=== PATIENT | female | born 1980 | race African-American/Black ===

== ENCOUNTER 2022-11-30 16:39 | Observation (INO) | payer SELFPAY ==
[~2022-11-30 16:39] MED LIST: Iopamidol-370 76% 500 ML MDV (1 ML CHARGE) ONE
[2022-11-30 19:12] LABS: #Eosinphils 0.3 thou/uL (0.0-0.7); #Monocytes 0.4 thou/uL (0.11-0.59); #Neutrophils 2.6 thou/uL (1.40-6.50); %Basophils 0.5 % (0.0-1.0); %Eosinophils 5.8 % (0.0-10.0); %Lymphocytes 39.7 % (21.0-51.0); %Monocytes 7.6 % (0.0-10.0); %Neutrophils 46.2 % (42.0-75.0); Hemoglobin 11.5 g/dL (12.0-16.0); Mean Corpuscular HGB CONC 33.1 g/dL (32.0-36.0); Mean Corpuscular Hemoglobin 29.5 pg (27.0-31.0); Mean Platelet Volume 9.9 fL (7.4-10.4); Platelet Count 309 10x3/uL (130-400); RBC Distribution Width 15.3 % (11.5-14.5); White Blood Cell (WBC) Count 5.5 10x3/uL (4.8-10.8)
[2022-11-30 19:27] LABS: BHCG - Serum Negative (NEGATIVE); Pregs Control Background? CLEAR/WHITE (CLR/WHITE); Pregs Control Bar Appear? YES (CONTROL BAR)
[2022-11-30 19:36] LABS: ALT (SGPT) 7 U/L (8-55); AST (SGOT) 13 U/L (5-34); Albumin 4.6 g/dL (3.5-5.0); Alkaline Phosphatase 58 U/L (40-110); Anion Gap 13 mmol/L (10-20); BUN (Urea Nitrogen) 10 mg/dL (7.0-18.7); Bilirubin, Total 0.2 mg/dL (0.2-1.2); Calc. Creatinine Clearance 0 mL/min (70-130); Calcium 9.9 mg/dL (7.8-10.44); Carbon Dioxide 26 mmol/L (22-29); Chloride 106 mmol/L (98-107); Estimated GFR 80; Globulin 3.3 g/dL (2.4-3.5); Glucose 88 mg/dL (70-105); Potassium 4.5 mmol/L (3.5-5.1); Protein, Total 7.9 g/dL (6.0-8.3); Sodium 140 mmol/L (136-145)
[2022-11-30 19:59] LABS: CKMB 0.3 ng/mL (0-6.6)
[2022-11-30] MEDS ORDERED: Nitroglycerin 0.4 MG TAB 1 EACH ONE (20:17)
[2022-11-30] MEDS ORDERED: Aspirin Chewable 81 MG TAB ONE (20:17)
[2022-11-30] MEDS ORDERED: Acetaminophen 650 MG Suppository PR PRN (21:34)
[2022-11-30] MEDS ORDERED: Acetaminophen 325 MG TAB PO PRN (21:34)
[2022-11-30] MEDS ORDERED: hydrALAZINE 20 MG/ML VIAL ONE (22:03)
[2022-11-30 22:06] LABS: Magnesium 1.8 mg/dL (1.6-2.6); Troponin I 0.045 ng/mL (< 0.028)
[2022-11-30] MEDS ORDERED: Ketorolac Tromethamine 30 MG/ML VIAL ONE (22:40)
[2022-11-30] MEDS ORDERED: HYDROcodone/Acetaminophen 5/325 mg Tablet PO PRN (22:42)
[2022-11-30] MEDS ORDERED: Acetaminophen 500 MG TAB PO PRN (22:42)
[2022-11-30] MEDS ORDERED: Pantoprazole 40 MG VIAL IVP SCH (23:00)
[2022-11-30] MEDS ORDERED: Amlodipine 10 MG TAB PO SCH (23:00)
[2022-11-30] MEDS ORDERED: Nitroglycerin 0.4 MG TAB (25 Tab Bottle) SL PRN (23:11)
[2022-11-30] MEDS ORDERED: Electrolyte Replacement Protocol 1 EACH FS SCH (23:45)
[2022-11-30] MEDS ORDERED: Magnesium 2 GM/50 ML(in water) 2 GM in Premix Bag 1 BAG IVPB SCH (23:59)
[2022-12-01] MEDS ORDERED: Ondansetron ODT 4 MG TAB SL PRN (00:30)
[2022-12-01] MEDS ORDERED: Ondansetron PF 4 MG/2 ML Vial IVP PRN (00:30)
[2022-12-01] MEDS: Ketorolac Tromethamine 30 MG/ML VIAL IVP SCH ×3 (00:35→12:58)
[2022-12-01 01:27] LABS: Troponin I 0.054 ng/mL (< 0.028)
[2022-12-01] MEDS ORDERED: Cyclobenzaprine 10 MG TAB PO PRN (02:50)
[2022-12-01 05:32] LABS: Hemoglobin A1c 5.2 % (4.0-6.0)
[2022-12-01 05:42] LABS: Cardiac Risk 2.9 (Less than 4.5)
[2022-12-01 07:59] LABS: Bilirubin Negative (Negative); Blood, Urine 1+ (Negative); CAUTI Indications for Culture Pelvic or flank pain; Clarity Turbid (Clear); Glucose, Urine (Dipstick) Normal (Negative); Ketone, Urine Negative (Negative); Leukocyte Negative Leu/uL (Negative); Nitrite Negative (Negative); Protein, Urine (Dipstick) Negative (Neg-Trace); RBC/HPF 0-3 HPF (0-3); Specific Gravity, Urine 1.033 (1.002-1.036); Squamous Epithelial 0-3 HPF (0-3); Urobilinogen Normal mg/dL (Less than 2); WBC/HPF 0-3 HPF (0-3); pH, Urine 6.5 (5.0-9.0)
[2022-12-01 08:09] LABS: Bacteria/HPF 1+ HPF (None Seen)
[2022-12-01 08:10] LABS: Urine Culture Reflex No No
[2022-12-01] MEDS ORDERED: Iopamidol 370 76% 100 ML VIAL ONE (08:59)
[2022-12-01] MEDS ORDERED: Famotidine 20 MG TAB PO SCH (09:00)
[2022-12-01] MEDS ORDERED: Pantoprazole 40 MG VIAL IVP SCH (09:00)
[2022-12-01] MEDS ORDERED: ADENOSINE 60 MG/20 ML SDV ONE (09:01)
[2022-12-01] MEDS: Amlodipine 5 MG TAB PO SCH ×2 (09:47→13:13)
[2022-12-01 10:38] VITALS: BMI 27.4
[2022-12-01 16:24] VITALS: BP 131/83; TEMP 98.6
== END 2022-12-01 18:50 | disposition home or self-care (01) ==
LOC: ERS 16:39 → 2SW 21:03
PROVIDERS: ADMIT Internal Medicine; ATTEND Internal Medicine
DX: R07.9 Chest pain, unspecified (principal); N20.0 Calculus of kidney; I16.1 Hypertensive emergency; I10 Essential (primary) hypertension; R77.8 Other specified abnormalities of plasma proteins; M54.2 Cervicalgia; M51.27 Other intervertebral disc displacement, lumbosacral region; N28.1 Cyst of kidney, acquired; K38.8 Other specified diseases of appendix
CPT/HCPCS: 36415; 36416; 71046; 71275; 72125; 74174; 74177; 78452; 80053; 80061; 81001; 82553; 83036; 83735; 83880; 84443; 84484; 84703; 85025; 93005; 93017; 93306; 96372; 96374; 96375; 96376; A9500; C9113; G0378; J0153; J0360; J1885; J3475; Q9967